=== PATIENT | male | born 1965 | race Caucasian/White ===

== ENCOUNTER 2016-11-12 00:58 | Emergency (ER) | payer OTHER ==
[~2016-11-12] VITALS: Ht 198.1 cm; Wt 98.0 kg
[2016-11-12 01:05] VITALS: TEMP 36.7; O2SAT 94; Ht 198.1 cm; Wt 98.0 kg
--- NOTE | 2016-11-12 01:24 | EMERGENCY ROOM VISIT NOTE ---
History Report prepared by Katelyn: Garland Qureshi Under the Supervision of: Dr. Rodrick Reyes M.D. First contact with patient: 01:15 Chief Complaint: ALCOHOL OVERDOSE Stated Complaint: ALCOHOL OVERDOSE Nursing Triage Summary: arrived via amb with bls. pt is from [place] staying at the [facility] visiting family. pt was drinking tonight and fell aleep on a park bench and [place] police called ems and brought him here. pt awake alert and oriented. offers no c/o has funds for a taxi and knows where he is staying. History of Present Illness The patient is a 50 year old male who presents to the Emergency Room for a constant alcohol overdose occurring prior to arrival. The patient states that he was downtown drinking alcohol at different bars, and he was found asleep on a bench. The patient states that he is currently in a hotel while visiting relatives, and he states that he had the funds for a taxi back to his hotel. The patient denies any problems with alcohol abuse or any other medical problems. He denies taking any current medications. Source of History: patient Onset: prior to arrival Position: other (global) Quality: other (alcohol overdose) Timing: constant Review of Systems See HPI for pertinent positives & negatives. A total of 10 systems reviewed and were otherwise negative. Past Medical & Surgical Medical Problems: (1) No active medical problems Social History Smoking Status: Never Smoker Housing Status: lives alone Occupation Status: employed Current/Historical Medications No Active Prescriptions or Reported Meds Allergies Coded Allergies: No Known Allergies (Unverified , 11/12/16) Physical Exam Vital Signs Date Time Temp Pulse Resp B/P (MAP) Pulse Ox O2 Delivery O2 Flow Rate FiO2 11/12/16 01:39 70 18 129/92 97 Room Air 11/12/16 01:05 36.7 95 18 164/97 94 Room Air 11/12/16 01:05 94 Room Air 11/12/16 01:04 91 Physical Exam GENERAL: Patient is mildly intoxicated intoxicated. Smells of alcohol. Well appearing and in no acute distress. HEAD: No evidence of Trauma. AT/NC EYES: injected conjunctiva. Normal EOM. Pupils equal/reactive. ENT: Mucous membranes moist, no nasal congestion, . NECK: No step-offs, no adenopathy, no meningismus, trachea is midline. LUNGS: No dyspnea. Clear to auscultation and equal bilaterally. No wheeze, no rhonchi. HEART: Regular rate and rhythm. No murmurs, rubs, gallops appreciated. ABDOMEN: Soft, nontender, bowel sounds positive, no masses appreciated, no peritonitis. BACK: No midline tenderness, no CVA tenderness EXTREMITIES: Normal motion all extremities, no cyanosis, no edema. NEUROLOGIC: Intoxicated. Mildly anxious. No slurred speech. Alert, oriented. No acute motor or sensory deficits, no focal weakness, cranial nerves grossly intact. PSYCH: Adamantly denies any thoughts of harm to self or others. Denies any depression. SKIN: No rash, no jaundice, no diaphoresis. Medical Decision & Procedures ED Course 0115: The patient was evaluated in room A3. A complete history and physical exam was performed. 0138: Reevaluated the patient. Discussed results and discharge instructions: He verbalized understanding and agreement. The patient is ready for discharge. Medical Decision Differential: Alcohol Intoxication, Drug Intoxication, Electrolyte Abnormality, Trauma, Intracranial Event, Toxicological, Excited Delirium, Serotonin Syndrome , amongst other pathologies entertained. 50 yr old intoxicated male brought in by EMS after being found sleeping downtown. Patient with no evidence nor history for trauma. Protecting airway and breathing comfortably throughout ED stay. Admits EtOH. Denies any concerns. Denies any thoughts suicidal/homicidal ideation nor depression. Notes he just wants to get back to hotel and get some sleep. Given he is awake , alert, oriented and denies any complaints I do not feel further reason to keep him in ED against his will and discharged via taxi to hotel. Advised against further etoh intake this evening. He is well aware of his high blood pressure and I advised he discuss this with his primary care provider. Impression Primary Impression: Alcohol intoxication Additional Impression: Hypertension Scribe Attestation The scribe's documentation has been prepared under my direction and personally reviewed by me in its entirety. I confirm that the note above accurately reflects all work, treatment, procedures, and medical decision making performed by me. Departure Information Dispostion Home / Self-Care Prescriptions No Active Prescriptions or Reported Meds Referrals No Doctor, Assigned (PCP) Forms HOME CARE DOCUMENTATION FORM, IMPORTANT VISIT INFORMATION Patient Instructions Alcohol Intoxication - [facility], [facility] Additional Instructions Your blood pressure was elevated during this visit. This is quite common in many people who are being evaluated in the Emergency Department for many reasons. However, it is important that you have your Primary Care Provider recheck your blood pressure and discuss whether treatment will be needed. longterm elevated blood pressure can lead to strokes, heart attacks, kidney failure amongst other medical issues. If you develop severe headaches, chest pain, weakness in arms or legs, or other concerning symptoms call 911. Problem Qualifiers
[2016-11-12 01:39] VITALS: BP 129/92; PULSE 70; O2SAT 97
== END 2016-11-12 01:49 | disposition home or self-care (01) ==
LOC: EDBD 00:58 → C.EDA 01:00
DX: F10.129 Alcohol abuse with intoxication, unspecified (principal); I10 Essential (primary) hypertension